=== PATIENT | female | born 1975 | race Caucasian/White ===

== ENCOUNTER 2024-01-21 14:06 | Emergency (ER) | payer SELFPAY ==
[~2024-01-21] VITALS: Ht 142.2 cm; Wt 59.1 kg
[~2024-01-21 14:06] MED LIST: AMOXICILLIN 8751 TAB PO; CEFTIN500 MG PO; NORCO 325 MG-51 TAB PO
[2024-01-21 14:58] LABS: BASO % 0.4 % (0.0-2.0); EOS # 0.1 K/mm3 (0.0-0.7); EOS % 1.7 % (0.0-4.0); GRAN # 4.8 K/mm3 (1.4-6.5); GRAN % 58.5 % (42.2-75.2); HEMATOCRIT 38.4 % (37.0-47.0); HEMOGLOBIN 12.9 g/dl (12.5-16.0); LYMPH # 2.8 K/mm3 (1.2-3.4); LYMPH % 33.3 % (20.0-51.0); MEAN CELL VOLUME 88 fl (80.0-100.0); MEAN CORPUSCULAR HEMOGLOBIN 29 pg (27-31); MEAN CORPUSCULAR HGB CONC 34 g/dl (33.0-37.0); MEAN PLATELET VOLUME 8.8 fl (7.4-10.4); MONO # 0.5 K/mm3 (0.1-0.6); MONO % 5.9 % (1.7-9.3); PLATELET COUNT 439 K/mm3 (130-400); RED BLOOD COUNT 4.39 M/mm3 (4.10-5.30); REDCELL DISTRIBUTION WIDTH-CV 15.1 % (11.5-14.5)
[2024-01-21 15:14] LABS: ALBUMIN 4.1 g/dL (3.5-5.0); BILIRUBIN,TOTAL 0.4 mg/dL (0.2-1.2); CALCIUM 9.7 mg/dL (8.4-10.2); CREATININE, serum 0.68 mg/dL (0.57-1.11); POTASSIUM 3.4 mEq/L (3.5-4.5); TOTAL PROTEIN 7.9 g/dl (6.2-8.1)
[2024-01-21] MEDS ORDERED: Iohexol 300 - 100 ML VIAL IV ONE (15:39)
[2024-01-21] MEDS ORDERED: NS 100 ML IV SCH (15:39)
[2024-01-21] MEDS ORDERED: Ketorolac 30 MG/ML VIAL IV ONE (17:30)
[2024-01-21] MEDS ORDERED: NORCO 325 MG-51 TAB PO (18:37)
[2024-01-21] MEDS ORDERED: MOTRIN 800800 MG/TAB PO (18:37)
[2024-01-21 18:38] LABS: COLLECTION METHOD CLEAN CATCH
[2024-01-21 18:54] LABS: URINE APPEARANCE CLEAR (CLEAR/HAZY); URINE BLOOD NEGATIVE (NEGATIVE); URINE COLOR YELLOW (YELLOW); URINE GLUCOSE NEGATIVE (NEGATIVE); URINE KETONE 2+ (NEGATIVE); URINE NITRATE NEGATIVE (NEGATIVE); URINE PROTEIN(semi-quant) TRACE (NEGATIVE); URINE UROBILINOGEN 0.2 E.U/dL (0.2-1.0)
[2024-01-21 19:04] VITALS: BP 149/78; PULSE 74; TEMP 99.1
== END 2024-01-21 19:06 | disposition home or self-care (01) ==
LOC: COL.ER 14:06
PROVIDERS: Physician Assistant
DX: D25.9 Leiomyoma of uterus, unspecified (principal)
CPT/HCPCS: J1885; Q9967

== ENCOUNTER → 2024-06-05 | Outpatient (CLI) | payer SELFPAY ==
[~2024-06-05] MED LIST changes: +MOTRIN 800800 MG/TAB PO
== END ==
LOC: MC.RAD 10:44
DX: N63.13 Unspecified lump in the right breast, lower outer quadrant (principal)